=== PATIENT | female | born 1960 | race Caucasian/White ===

== ENCOUNTER → 2018-05-30 01:02 | Outpatient (CLI) | payer MEDICARE, SELFPAY ==
--- NOTE | 2018-05-30 10:00 | DI.REPORT_ITS ---
SYMPTOM/DIAGNOSIS: PERSONAL H/O BREAST CA Z85.3 MAMMOGRAMS: Mammograms were interpreted according to the usual protocol including computer analysis with CAD system, tomosynthesis and C view imaging. The breast tissue is moderately radiodense which somewhat limits the sensitivity of the study. The patient is status post bilateral breast surgery and biopsy clips are in the upper outer right breast. There is no dominant mass. SUMMARY: No significant interval change when compared with the previous examination. Breast density Category C. There is no evidence of malignancy. Category 2. Follow up surveillance with routine screening mammography is recommended. SA ASSESSMENT OF FINDINGS: Negative with benign findings. Category 2. Patient will receive a letter notifying them of these results. Bi-RADS category C. The breasts are heterogeneously dense, which may obscure small masses.
== END ==
PROVIDERS: PCP Nurse Practitioner Family; Visit Provider Nurse Practitioner Family
DX: Z85.3 Personal history of malignant neoplasm of breast (principal); Z98.890 Other specified postprocedural states
CPT/HCPCS: 77063; 77067

== ENCOUNTER 2018-07-04 13:58 | Emergency (ER) | payer MEDICARE, SELFPAY ==
[2018-07-04] VITALS (16 sets, daily range): BP systolic 121–147; BP diastolic 63–88; PULSE 56–79; RESP 11–16; TEMP 36.6; O2SAT 96–100
--- NOTE | 2018-07-04 14:21 | W.ED.GENAD ---
Discharge Plan Disposition Patient Disposition: AGAINST MEDICAL ADVICE Discharge Details Chief Complaint: Dizzy/Sync Clinical Impression: Vertigo Primary Care Provider: Toyin Mcnair ED Provider: Melody Stone Home Meds and New Rx's Prescriptions: No Action vit A and D3 in cod liver oil [cod liver oil] 1 EACH capsule 1 ea PO DAILY RF: 0 magnesium 200 MG tablet 200 mg PO DAILY RF: 0 Black Current Oil 1 cap PO BID RF: 0 iodine (bulk) 1 GM granules 1 tab PO DAILY RF: 0 amoxicillin-pot clavulanate 1 TAB tablet 1 ea PO TID Qty: 22 RF: 0 ibuprofen [Advil Liqui-Gel] 200 MG capsule 4 tab PO PRN PRNRF: 0 Discharge Instructions Instructions: Vertigo (ED) Additional Instructions: You have elected to leave the emergency department AGAINST MEDICAL ADVICE. There is a risk of or permanent disability of leaving AGAINST MEDICAL ADVICE. He may return to the emergency department anytime if you choose to do so, or if you experience new or worsening symptoms or become otherwise concerned. It is extremely important that you see your primary care doctor as scheduled tomorrow. Referrals: Toyin Mcnair [Primary Care Provider] - Discharge Data Discharge Date/Time-TO BE ENTERED AT DEPARTURE: 07/04/18 16:00 Medical Decision Making MDM Narrative Medical decision making narrative: Patt Mark is a 58 y/o woman with h/o breast cancer in the past presenting to the emergency department with episode of sudden onset feeling off-balance, sweating and elevated BP. No lightheadedness or presyncope. On exam Pt is very well-appearing and non-toxic. Non-focal neuro exam. Concern for BPV vs central vertigo/TIA vs other. Doubt ACS, arrhythmia. Exam/hx not c/w PE, acute aortic pathology, sepsis, meningitis. Plan for EKG, screening labs, MRI/MRA for posterior circulation evaluation. Labs non-diagnostic. Pt reporting that she now feels better and at baseline. Pt reports that she has severe claustrophobia and does want to have an MRI. She reports that she is currently in remssion from b/l breast cancer and is supposed to have breast MRIs annually, which she has not had in the past 3 years 2/2 claustrophobia. Pt offered anxiety medication for MRI and she continues to refuse. 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 Discussed the risks of leaving AMA, including and permanent disability with Pt, who verbalizes understanding of these risks and continues to refuse further testing and requests to leave now. She reports that she called her PCP and made an appointment for tomorrow. Lengthy discussion with Pt re: RTED precautions, that she may RTED at any time if she changes her mind, and importance of outpt f/u. ECG Data Attestation: I personally reviewed and interpreted this ECG (s) as follows: Interpretation: EKG shows NSR at 81, nl axis, no acute ischemic changes, no WPW, no brugada, nl intervals, non-diagnostic EKG HPI - General Adult General Mode of arrival: ambulatory. Date/Time Provider Initiated Documentation: 07/04/18 14:10. Limitations to Documentation: no limitations. Information obtained by: patient. HPI Narrative: Patt Mark is a 58-year-old woman with h/o breast cancer in the past presenting to the emergency department complaining of vertigo. Patient reports that earlier today she was making herself lunch when she had a sudden sensation of motion and felt as if she was going to fall over. She began sweating and feeling not like myself. She sat down and took her BP several times during this episode, with max SBP in 150s and max DBP in 90s, which is unusually high for her. She had no pain, no SOB, no fever, no weakness, no n/t. Pt reports that feeling of motion gradually began to resolve, and lasted approx one hour. Pt called her PCP, and was told to come to the ED. Pt reports that she still feels not like myself, but is unable to describe this sensation further. No further feeling of being off balance or sense of motion. She denies having similar symptoms in the past. She has previously been in her usual state of health, no recent illness. No recent travel. No h/o vertigo in the past. Related Data Home Medications Medication Instructions Recorded Confirmed vit A and D3 in cod liver oil [cod 1 ea PO DAILY 09/26/13 08/18/17 liver oil] Black Current Oil 1 cap PO BID 07/01/14 02/14/18 magnesium 200 mg PO DAILY 07/01/14 02/14/18 ibuprofen [Advil Liqui-Gel] 4 tab PO PRN PRN 04/02/17 02/14/18 iodine (bulk) 1 tab PO DAILY 02/14/18 02/14/18 Previous Rx's Medication Instructions Recorded amoxicillin-pot clavulanate 1 ea PO TID #22 tab 02/14/18 Allergies Allergy/AdvReac Type Severity Reaction Status Date / Time avocado [Avocado] Allergy Severe Anaphylaxsi Verified 02/14/18 21:06 s oxaprozin [Oxaprozin] Allergy Intermediate SOB Verified 02/14/18 21:06 adhesive Allergy Unknown SKIN RASH Verified 02/14/18 21:06 Sulfa (Sulfonamide AdvReac Severe Anaphylaxsi Verified 02/14/18 21:06 Antibiotics) s latex AdvReac Intermediate Swelling/Ed Verified 02/14/18 21:06 keren metronidazole AdvReac HEADACHE Verified 02/14/18 21:06 sertraline AdvReac DIZZINESS Verified 02/14/18 21:06 multiple food allergies Allergy Intermediate Uncoded 02/14/18 20:50 General Stated Complaint: Dizzy/Sync SEBASTIAN: 2 Review of Systems Review of Systems Constitutional: denies fevers Eyes: denies eye pain ENT: denies facial pain, dental pain, sore throat, congestion, change in hearing, ear pain Cardiovascular: denies chest pain, edema Respiratory: denies SOB, cough GI: denies abdominal pain, vomiting, diarrhea : denies flank pain MSK: denies back pain, neck pain, arhtralgias, myalgias Skin: denies rash Neuro: denies headaches, lightheadedness, weakness, numbness/tingling; reports loss of balance [facility] Medical History Breast cancer (Chronic) Social History Smoking/Tobacco Use Status: Former Tobacco Use Surgical History Appendectomy Colonoscopy - MAC Hysterectomy, Laproscopic Skin Cancer Removal Tonsillectomy Exam Narrative Exam Narrative: Constitutional: well and [id number], pleasant, conversing normally HENT: head atraumatic, normocephalic normal inspection, mucous membranes moist, TMs and canals nl b/l Eyes: conjunctiva normal, sclera normal, pupils 3mm b/l, EOMI, no nystagmus Neck: no stridor, normal ROM, trachea midline Chest: normal inspection Resp: normal work of breathing, LCTAB Cardio: normal rate, normal rhythm, no murmur appreciated GI: abdomen soft, non-tender, non-distended Back: normal inspection, no rash Skin: warm, dry, normal color, no rash Neuro: alert, not altered, 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
[2018-07-04 15:35] LABS: Abs Immature Grans 0.01 k/cumm (0.0-0.09); Absolute Basophil Count 0.01 k/cumm (0.0-0.2); Absolute Eosinophil Count 0.17 k/cumm (0.0-0.7); Absolute Lymphocyte Count 2.19 k/cumm (1.2-3.4); Absolute Monocyte Count 0.32 k/cumm (0.11-0.7); Absolute Neutrophil Count 2.62 k/cumm (1.2-6.7); Basophils % 0.2; Eosinophils % 3.2; HCT 39.4 % (36.0-46.0); HGB 13.7 g/dL (12.0-15.5); Immature Grans % 0.2; Lymphocytes % 41.2; Mean Corp. HGB Concentration 34.8 g/dL (32.0-36.0); Mean Corpuscular Hemoglobin 31.5 pg (27.0-33.0); Mean Corpuscular Volume 90.6 fL (80-95); Mean Platelet Volume 9.3 fL (8.0-11.0); Neutrophils % 49.2; Platelet Count 235 x1000/uL (130-400); RBC 4.35 m/cumm (4.00-5.20); RBC Distribution Width 12.8 % (11.7-14.6); White Blood Cell Count 5.32 k/cumm (4.4-10.8)
[2018-07-04 15:51] LABS: ALT 44 U/L (12-78); AST 23 U/L (15-37); Albumin 3.8 g/dL (3.4-5.0); Alkaline Phosphatase 109 U/L (46-116); Anion Gap 7.7 mmol/L (3-11); BUN 18 mg/dL (7-18); Bilirubin, Total 0.3 mg/dL (0.2-1.0); CO2 28.3 mmol/L (21.0-32.0); CREATININE 0.76 mg/dL (0.55-1.02); Chloride 105 mmol/L (98-107); Glucose 96 mg/dL (70-100); Sodium 141 mmol/L (136-145); Total Protein 7.7 g/dL (6.4-8.2)
[2018-07-04 15:54] LABS: Troponin I < 0.02 ng/mL (0.00-0.06)
--- NOTE | 2018-07-04 16:02 | ED.GENADUL_ITS ---
Discharge Plan Disposition Patient Disposition: AGAINST MEDICAL ADVICE Discharge Details Chief Complaint: Dizzy/Sync Clinical Impression: Vertigo Primary Care Provider: Toyin Mcnair ED Provider: Melody Stone Home Meds and New Rx's Prescriptions: No Action vit A and D3 in cod liver oil [cod liver oil] 1 EACH capsule 1 ea PO DAILY RF: 0 magnesium 200 MG tablet 200 mg PO DAILY RF: 0 Black Current Oil 1 cap PO BID RF: 0 iodine (bulk) 1 GM granules 1 tab PO DAILY RF: 0 amoxicillin-pot clavulanate 1 TAB tablet 1 ea PO TID Qty: 22 RF: 0 ibuprofen [Advil Liqui-Gel] 200 MG capsule 4 tab PO PRN PRNRF: 0 Discharge Instructions Instructions: Vertigo (ED) Additional Instructions: You have elected to leave the emergency department AGAINST MEDICAL ADVICE. There is a risk of or permanent disability of leaving AGAINST MEDICAL ADVICE. He may return to the emergency department anytime if you choose to do so, or if you experience new or worsening symptoms or become otherwise concerned. It is extremely important that you see your primary care doctor as scheduled tomorrow. Referrals: Toyin Mcnair [Primary Care Provider] - Discharge Data Discharge Date/Time-TO BE ENTERED AT DEPARTURE: 07/04/18 16:00 Medical Decision Making MDM Narrative Medical decision making narrative: Patt Mark is a 58 y/o woman with h/o breast cancer in the past presenting to the emergency department with episode of sudden onset feeling off-balance, sweating and elevated BP. No lightheadedness or presyncope. On exam Pt is very well-appearing and non-toxic. Non-focal neuro exam. Concern for BPV vs central vertigo/TIA vs other. Doubt ACS , arrhythmia. Exam/hx not c/w PE, acute aortic pathology, sepsis, meningitis. Plan for EKG, screening labs, MRI/MRA for posterior circulation evaluation. Labs non-diagnostic. Pt reporting that she now feels better and at baseline. Pt reports that she has severe claustrophobia and does want to have an MRI. She reports that she is currently in remssion from b/l breast cancer and is supposed to have breast MRIs annually, which she has not had in the past 3 years 2/2 claustrophobia. Pt offered anxiety medication for MRI and she continues to refuse. 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 Discussed the risks of leaving AMA, including and permanent disability with Pt, who verbalizes understanding of these risks and continues to refuse further testing and requests to leave now. She reports that she called her PCP and made an appointment for tomorrow. Lengthy discussion with Pt re: RTED precautions, that she may RTED at any time if she changes her mind, and importance of outpt f/u. ECG Data Attestation: I personally reviewed and interpreted this ECG (s) as follows: Interpretation: EKG shows NSR at 81, nl axis, no acute ischemic changes, no WPW , no brugada, nl intervals, non-diagnostic EKG HPI - General Adult General Mode of arrival: ambulatory . Date/Time Provider Initiated Documentation: 07/04/18 14:10 . Limitations to Documentation: no limitations . Information obtained by: patient . HPI Narrative: Patt Mark is a 58-year-old woman with h/o breast cancer in the past presenting to the emergency department complaining of vertigo. Patient reports that earlier today she was making herself lunch when she had a sudden sensation of motion and felt as if she was going to fall over. She began sweating and feeling not like myself. She sat down and took her BP several times during this episode, with max SBP in 150s and max DBP in 90s, which is unusually high for her. She had no pain, no SOB, no fever, no weakness, no n/t. Pt reports that feeling of motion gradually began to resolve, and lasted approx one hour. Pt called her PCP, and was told to come to the ED. Pt reports that she still feels not like myself, but is unable to describe this sensation further. No further feeling of being off balance or sense of motion. She denies having similar symptoms in the past. She has previously been in her usual state of health, no recent illness. No recent travel. No h/o vertigo in the past. Related Data Home Medications Medication Instructions Recorded Confirmed vit A and D3 in cod liver oil [cod 1 ea PO DAILY 09/26/13 08/18/17 liver oil] Black Current Oil 1 cap PO BID 07/01/14 02/14/18 magnesium 200 mg PO DAILY 07/01/14 02/14/18 ibuprofen [Advil Liqui-Gel] 4 tab PO PRN PRN 04/02/17 02/14/18 iodine (bulk) 1 tab PO DAILY 02/14/18 02/14/18 Previous Rx's Medication Instructions Recorded amoxicillin-pot clavulanate 1 ea PO TID #22 tab 02/14/18 Allergies Allergy/AdvReac Type Severity Reaction Status Date / Time avocado [Avocado] Allergy Severe Anaphylaxsi Verified 02/14/18 21:06 s oxaprozin [Oxaprozin] Allergy Intermediate SOB Verified 02/14/18 21:06 adhesive Allergy Unknown SKIN RASH Verified 02/14/18 21:06 Sulfa (Sulfonamide AdvReac Severe Anaphylaxsi Verified 02/14/18 21:06 Antibiotics) s latex AdvReac Intermediate Swelling/Ed Verified 02/14/18 21:06 keren metronidazole AdvReac HEADACHE Verified 02/14/18 21:06 sertraline AdvReac DIZZINESS Verified 02/14/18 21:06 multiple food allergies Allergy Intermediate Uncoded 02/14/18 20:50 General Stated Complaint: Dizzy/Sync SEBASTIAN: 2 Review of Systems Review of Systems Constitutional: denies fevers Eyes: denies eye pain ENT: denies facial pain, dental pain, sore throat, congestion, change in hearing , ear pain Cardiovascular: denies chest pain, edema Respiratory: denies SOB, cough GI: denies abdominal pain, vomiting, diarrhea : denies flank pain MSK: denies back pain, neck pain, arhtralgias, myalgias Skin: denies rash Neuro: denies headaches, lightheadedness, weakness, numbness/tingling; reports loss of balance [facility] Medical History Breast cancer (Chronic) Social History Smoking/Tobacco Use Status: Former Tobacco Use Surgical History Appendectomy Colonoscopy - MAC Hysterectomy, Laproscopic Skin Cancer Removal Tonsillectomy Exam Narrative Exam Narrative: Constitutional: well and [id number], pleasant, conversing normally HENT: head atraumatic, normocephalic normal inspection, mucous membranes moist, TMs and canals nl b/l Eyes: conjunctiva normal, sclera normal, pupils 3mm b/l, EOMI, no nystagmus Neck: no stridor, normal ROM, trachea midline Chest: normal inspection Resp: normal work of breathing, LCTAB Cardio: normal rate, normal rhythm, no murmur appreciated GI: abdomen soft, non-tender, non-distended Back: normal inspection, no rash Skin: warm, dry, normal color, no rash Neuro: alert, not altered, induction heating equipment 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
--- NOTE | 2018-07-05 11:54 | PDOC.ERCMPRO ---
Care Management Progress Note 07/05/18-Pt seen on 07/04/[address] Deshaun Stone. Pt left AMA. CM conatcted Pt who stated all the staff was very nice to her it was just a time constrainnt on her end as she had to pick her boyfriend up from work. Pt had a scheduled appt with her PCP for today and decided to cancel it and made an appt with her chiropractor, instead. Pt declined wanting a f/u appt with PCP at this time.
== END 2018-07-04 16:00 | disposition left against medical advice (07) ==
LOC: ER 18:35
PROVIDERS: Emergency Provider Student in an Organized Health Care Education/Training Program; PCP Nurse Practitioner Family
DX: R42 Dizziness and giddiness (principal); Z53.29 Procedure and treatment not carried out because of patient's decision for other reasons
CPT/HCPCS: 36415; 80053; 93005; 99284; 84484; 85025; 93010

== ENCOUNTER 2019-01-04 10:21 | Outpatient (CLI) | payer MEDICARE, SELFPAY ==
[2019-01-04 11:19] LABS: Absolute Basophil Count 0.02 k/cumm (0.0-0.2); Absolute Eosinophil Count 0.13 k/cumm (0.0-0.7); Absolute Lymphocyte Count 1.88 k/cumm (1.2-3.4); Absolute Monocyte Count 0.23 k/cumm (0.11-0.7); Absolute Neutrophil Count 2.22 k/cumm (1.2-6.7); Basophils % 0.4; Eosinophils % 2.9; HCT 39.5 % (36.0-46.0); HGB 13.6 g/dL (12.0-15.5); Mean Corp. HGB Concentration 34.4 g/dL (32.0-36.0); Mean Corpuscular Hemoglobin 30.8 pg (27.0-33.0); Mean Corpuscular Volume 89.6 fL (80-95); Mean Platelet Volume 9.6 fL (8.0-11.0); Monocytes % 5.1; Neutrophils % 49.6; Platelet Count 246 x1000/uL (130-400); RBC 4.41 m/cumm (4.00-5.20); RBC Distribution Width 12.5 % (11.7-14.6); White Blood Cell Count 4.48 k/cumm (4.4-10.8)
[2019-01-04 14:23] LABS: Iron 96 ug/dL (50-175); Total Iron Binding Capacity 345 ug/dL (250-450); Transferrin Sat 28 % (15-50)
[2019-01-04 15:25] LABS: Anion Gap 12.7 mmol/L (3-11); BUN 18 mg/dL (7-18); CO2 24.3 mmol/L (21.0-32.0); CREATININE 0.79 mg/dL (0.55-1.02); Calcium 9.5 mg/dL (8.5-10.1); Chloride 103 mmol/L (98-107); Cholesterol 247 mg/dL (50-200); Ferritin 105 ng/mL (8-388); Glucose 88 mg/dL (70-100); HDL Cholesterol 103 mg/dL (40-60); LDL CHOLESTEROL 124 mg/dL (<100); Magnesium 2.1 mg/dL (1.8-2.4); Potassium 4.1 mmol/L (3.5-5.1); Sodium 140 mmol/L (136-145); TSH (W/Ref FT4) 1.34 uIU/mL (0.358-3.74); Triglyceride 61 mg/dL (30-150)
== END 2019-01-04 10:41 ==
PROVIDERS: PCP Nurse Practitioner Family; Visit Provider Nurse Practitioner Family
DX: R42 Dizziness and giddiness (principal); E03.9 Hypothyroidism, unspecified; I70.0 Atherosclerosis of aorta; R73.9 Hyperglycemia, unspecified; M25.50 Pain in unspecified joint
CPT/HCPCS: 36415; 80048; 80061; 83721; 82728; 83540; 83550; 83735; 84443; 85025

== ENCOUNTER 2019-01-25 02:28 | Outpatient (CLI) | payer MEDICARE, SELFPAY ==
--- NOTE | 2019-01-25 10:38 | DI.US_ITS ---
SYMPTOM/DIAGNOSIS: LIGHTHEADEDNESS, R42, ATHEROSCLEROTIC AORTA, I70.0, HEADACHES, DIZZINESS, BLURRY VISION LT EYE BILATERAL DUPLEX CAROTID ULTRASOUND: Duplex evaluation of the carotid circulation was performed according to the usual protocol. There is little or no visible atheromatous plaque in the carotid circulation. Flow velocities in common, internal and external carotid arteries are within normal limits bilaterally. There is bilateral antegrade vertebral flow. CONCLUSION: No evidence of a hemodynamically significant carotid stenosis.
== END 2019-01-25 02:48 ==
PROVIDERS: PCP Nurse Practitioner Family; Visit Provider Nurse Practitioner Family
DX: R42 Dizziness and giddiness (principal); I70.0 Atherosclerosis of aorta; R51 Headache; H53.8 Other visual disturbances
CPT/HCPCS: 93880

== ENCOUNTER → 2019-03-25 13:52 | Outpatient (BNVA) | payer MEDICARE, SELFPAY | PROVIDERS: PCP Nurse Practitioner Family; Referring Provider Nurse Practitioner Family; Visit Provider Psychiatry & Neurology Neurology | DX: G44.209 Tension-type headache, unspecified, not intractable (principal); G43.009 Migraine without aura, not intractable, without status migrainosus; G47.00 Insomnia, unspecified; J44.9 Chronic obstructive pulmonary disease, unspecified; Z87.891 Personal history of nicotine dependence | CPT/HCPCS: 99205; 99215 ==

== ENCOUNTER 2019-09-27 15:55 | Outpatient (CLI) | payer MEDICARE, SELFPAY ==
[2019-09-27 16:46] LABS: Absolute Basophil Count 0.02 k/cumm (0.0-0.2); Absolute Eosinophil Count 0.17 k/cumm (0.0-0.7); Absolute Lymphocyte Count 2.82 k/cumm (1.2-3.4); Absolute Monocyte Count 0.39 k/cumm (0.11-0.7); Absolute Neutrophil Count 2.33 k/cumm (1.2-6.7); Basophils % 0.3; HCT 39.9 % (36.0-46.0); HGB 13.9 g/dL (12.0-15.5); Lymphocytes % 49.2; Mean Corp. HGB Concentration 34.8 g/dL (32.0-36.0); Mean Corpuscular Hemoglobin 31.4 pg (27.0-33.0); Mean Corpuscular Volume 90.1 fL (80-95); Mean Platelet Volume 9.4 fL (8.0-11.0); Monocytes % 6.8; Neutrophils % 40.7; Platelet Count 274 x1000/uL (130-400); RBC 4.43 m/cumm (4.00-5.20); RBC Distribution Width 12.5 % (11.7-14.6); White Blood Cell Count 5.73 k/cumm (4.4-10.8)
== END 2019-09-27 16:15 ==
PROVIDERS: PCP Nurse Practitioner Family; Visit Provider Nurse Practitioner Family
DX: D84.1 Defects in the complement system (principal)
CPT/HCPCS: 36415; 85025

== ENCOUNTER 2019-10-08 02:32 | Outpatient (CLI) | payer MEDICARE, SELFPAY ==
--- NOTE | 2019-10-08 09:07 | DI.MAMMO_ITS ---
EXAM: MG MAMMO SCREENING 60 MIN DUR CLINICAL HISTORY: PERSONAL H/O BREAST CA, Z85.3 TECHNIQUE: Mammograms were interpreted according to the usual protocol including computer analysis w [employer] CAD system, tomosynthesis and C-view imaging. COMPARISON: 2009 through 2017. FINDINGS: The breasts are composed of heterogeneously dense fibroglandular densities, Breast Density category C . There is mild bilateral scarring related to remote lumpectomies. Biopsy marker clips are again noted in the upper outer quadrant of the right breast. No suspicious masses or suspicious microcalcifications are seen. There are scattered benign calcifi cations in the superior portions of both breasts, stable. No skin thickening or abnormal axillary lymph nodes are seen. There has been no significant change from prior exams. IMPRESSION: BIRADS Category 2, negative mammogram with benign findings. Yearly screening mammography is recommen ded. BREAST DENSITY: The mammogram demonstrates the patient's breast tissue is dense. Dense breast tissue is very common and is not abnormal but dense breast tissue can make it harder to find cancer on a ma mmogram. Also, dense breast tissue may increase their breast cancer risk. This information about the result of the mammogram report was provided to the patient to raise their awareness. Use this report when you speak with the patient about their risks for breast cancer, which includes their family hist ory. At that time, you may recommend for more screening tests (Ultrasound or MRI) as they might be us eful based on their risk. A negative radiographic report should not delay biopsy if a dominant or clinically suspicious mass is present. Up to ten percent of cancers are not identified on mammography. A negative report may reinforce clinical impression. Adenosis and dense breasts may obscure an underlying neoplasm. False positive reports average 6 to 10%.
== END 2019-10-08 02:52 ==
PROVIDERS: PCP Nurse Practitioner Family; Visit Provider Nurse Practitioner Family
DX: Z12.31 Encounter for screening mammogram for malignant neoplasm of breast (principal); Z85.3 Personal history of malignant neoplasm of breast; Z98.890 Other specified postprocedural states; R92.1 Mammographic calcification found on diagnostic imaging of breast
CPT/HCPCS: 77063; 77067

== ENCOUNTER 2019-10-18 06:00 | Emergency (ER) | payer MEDICARE, SELFPAY ==
[2019-10-18 06:08] VITALS: BP 139/65; PULSE 93; RESP 18; TEMP 36.3; O2SAT 98
--- NOTE | 2019-10-18 06:18 | W.ED.GENAD ---
Discharge Plan Disposition Patient Disposition: HOME Condition: Stable Discharge Details Chief Complaint: Abd Prob Clinical Impression: Diverticulitis Primary Care Provider: Toyin Mcnair ED Provider: Leonel Mitchell Home Meds and New Rx's Prescriptions: New amoxicillin-pot clavulanate [Augmentin] 875-125 mg tablet 1 tab PO BID Qty: 14 RF: 0 Continued potassium chloride 40 mEq/15 mL liquid 40 meq PO DAILY RF: 0 vitamin B complex [Vitamins B Complex] tablet 1 tab PO DAILY RF: 0 cod liver oil oil 5 ml PO DAILY RF: 0 cholecalciferol (vitamin D3) 2,000 unit/drop drops 4,000 unit PO DAILY RF: 0 iodine liquid MC RF: 0 vit A and D3 in cod liver oil [cod liver oil] 1 EACH capsule 1 ea PO DAILY RF: 0 magnesium 200 MG tablet 200 mg PO DAILY RF: 0 Black Current Oil 1 cap PO BID RF: 0 ibuprofen [Advil Liqui-Gel] 200 MG capsule 4 tab PO PRN PRNRF: 0 Discharge Instructions Instructions: Diverticulitis (ED) Additional Instructions: if your pain is not improving in 3 days or significant worsening of pain return to the emergency department follow up with your primary care provider within 1-2 weeks Medical Decision Making 59 yo female with prior total hysterectomy and prior diverticulitis comes in with llq pain similar to prior diverticulitis she has had. Denies fevers, chills, vomit. She is leaving for [place] tomorrow and came in today for an eval. She has tenderness without guarding and rebound tenderness in llq no other pain elsewhere on exam. Suspect diverticulitis but had discussion about CT to confirm but she declined and would like to start PO abx. She has capacity to make her own decisions and understands she needs to return if she is not improving in a few days with abx or if pain significantly worsens. She has multiple drug allergies and she does confirm with me she has tolerated augmentin in the past without significant reactions so will start this Differential Diagnosis Differential Diagnosis: diverticulitis, colitis HPI General Mode of arrival: ambulatory. Date/Time Provider Initiated Documentation: 10/18/19 06:01. Limitations to Documentation: no limitations. Information obtained by: patient. History of Present Illness 59 year old F presents to the emergency department with the chief complaint of abdominal pain, described as moderate, Quality is described as aching, No relieving factors improve symptom(s), No exacerbating factors reported . Patient did receive the following treatments prior to arrival, none Related Data Home Medications Medication Instructions Recorded Confirmed vit A and D3 in cod liver oil [cod 1 ea PO DAILY 09/26/13 10/18/19 liver oil] Black Current Oil 1 cap PO BID 07/01/14 10/18/19 magnesium 200 mg PO DAILY 07/01/14 10/18/19 ibuprofen [Advil Liqui-Gel] 4 tab PO PRN PRN 04/02/17 10/18/19 cholecalciferol (vitamin D3) 2,000 4,000 unit PO DAILY ml 01/29/19 10/18/19 unit/drop oral drops cod liver oil 5 ml PO DAILY 01/29/19 10/18/19 iodine ml MC 01/29/19 03/25/19 potassium chloride 40 mEq/15 mL 40 meq PO DAILY 01/29/19 10/18/19 oral liquid vitamin B complex 1 tab PO DAILY 01/29/19 10/18/19 amoxicillin-pot clavulanate 1 tab PO BID #14 tab 10/18/19 [Augmentin] Previous Rx's Medication Instructions Recorded amoxicillin-pot clavulanate 1 tab PO BID #14 tab 10/18/19 [Augmentin] Allergies Allergy/AdvReac Type Severity Reaction Status Date / Time avocado [Avocado] Allergy Severe Anaphylaxsi Verified 10/18/19 06:11 s oxaprozin [Oxaprozin] Allergy Intermediate SOB Verified 10/18/19 06:11 amoxicillin [From Augmentin] Allergy Mild Verified 10/18/19 06:11 clavulanic acid Allergy Mild Verified 10/18/19 06:11 [From Augmentin] fentanyl Allergy Mild Verified 10/18/19 06:11 morphine Allergy Mild Verified 10/18/19 06:11 adhesive Allergy Unknown SKIN RASH Verified 10/18/19 06:11 Sulfa (Sulfonamide AdvReac Severe Anaphylaxsi Verified 10/18/19 06:11 Antibiotics) s latex AdvReac Intermediate Swelling/Ed Verified 10/18/19 06:11 keren metronidazole AdvReac HEADACHE Verified 10/18/19 06:11 sertraline AdvReac DIZZINESS Verified 10/18/19 06:11 multiple food allergies Allergy Intermediate Uncoded 10/18/19 06:11 General Stated Complaint: Abd Prob SEBASTIAN: 3 Review of Systems All systems reviewed & are unremarkable except as noted in HPI and below Constitutional Constitutional: Denies chills, Denies fever(s) and Denies weakness ENT Ears, Nose, Mouth, and Throat: Denies change in voice Cardiovascular Cardiovascular: Denies chest pain and Denies dyspnea Respiratory Respiratory: Denies cough and Denies dyspnea Gastrointestinal Gastrointestinal: Denies nausea and Denies vomiting Genitourinary Genitourinary: Denies dysuria Musculoskeletal Musculoskeletal: Denies joint swelling Integumentary/Breasts Skin/Breast: Denies rash Neurologic Neurologic: Denies weakness Psychiatric Psychiatric: Denies depression Endocrine Endocrine: Denies cold intolerance and Denies heat intolerance Allergic/Immunologic Allergic/Immunologic: Denies urticaria PFSH Social History Smoking/Tobacco Use Status: Former Tobacco Use Alcohol Intake: current Alcohol Intake frequency: a few times a month Drug use: Never 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 Do you feel safe in your relationship?: Yes Exam Const General: no acute distress Orientation: alert HENMT Head: normal to inspection Ears: external ears normal General nose exam: external nose normal Mouth: moist mucous membranes Eyes General: appearance normal, both eyes and all related structures Neck Neck: normal visual inspection Resp Effort & Inspection: normal respiratory effort and able to speak in complete sentences Cardio Rate: regular rate GI Palpation: soft Skin General skin exam: no rashes or lesions noted Neuro General: alert and oriented x3 Extrem General: normal to inspection Psych Mental Status: mental status grossly normal Course Vital Signs Vital signs: Vital Signs Temperature 36.3 C L 10/18/19 06:08 Pulse 93 H 10/18/19 06:08 Respiratory Rate 18 10/18/19 06:08 Blood Pressure 139/65 10/18/19 06:08 Pulse Oximetry 98 10/18/19 06:08 Temperature 36.3 C L 10/18/19 06:08 Temperature Source Skin 10/18/19 06:08 Pulse 93 H 10/18/19 06:08 Respiratory Rate 18 10/18/19 06:08 Blood Pressure 139/65 10/18/19 06:08 Pulse Oximetry 98 10/18/19 06:08 Pain Level 8 10/18/19 06:08
[2019-10-18] MEDS: Ciprofloxacin 500 MG TAB PO (06:40)
[2019-10-18] MEDS: metroNIDAZOLE 500 MG TAB PO (06:41)
== END 2019-10-18 06:45 | disposition home or self-care (01) ==
PROVIDERS: Emergency Provider Emergency Medicine; PCP Nurse Practitioner Family
DX: R10.824 Left lower quadrant rebound abdominal tenderness (principal); K57.32 Diverticulitis of large intestine without perforation or abscess without bleeding
CPT/HCPCS: 99283

== ENCOUNTER 2020-06-17 03:27 | Outpatient (CLI) | payer MEDICARE, SELFPAY ==
[2020-06-17 17:44] LABS: FREE T4 1.02 ng/dL (0.76-1.46); TSH 0.84 uIU/mL (0.36-3.74)
[2020-06-18 17:04] LABS: T3,Free 3.7 pg/mL (2.8-5.3)
== END 2020-06-17 03:47 ==
PROVIDERS: PCP Nurse Practitioner Family; Visit Provider Nurse Practitioner Family
DX: E03.9 Hypothyroidism, unspecified (principal)
CPT/HCPCS: 36415; 84439; 84443; 84481

== ENCOUNTER 2020-07-09 01:28 | Outpatient (CLI) | payer MEDICARE, SELFPAY ==
--- NOTE | 2020-07-09 | DI.CT_ITS ---
EXAM: CT HEAD WO CLINICAL HISTORY: MEMORY DEFICIT, R41.3,H/O FALL, Z91.81. TECHNIQUE: Imaging Protocol: Axial computed tomography images with coronal and sagittal reformatted images were created and reviewed COMPARISON: CT HEAD AND CSPINE W/O CONTRAST from 03/27/2015 FINDINGS: The ventricular system is normal in appearance. Note is made of mild bifrontal atrophy. No evidence of acute intracranial hemorrhage, mass effect, or midline shift. The orbital structures are unremarkable. The temporal bone structures appear intact. Calvarium: Normal. Visualized Paranasal sinuses/Mastoids: Clear. IMPRESSION: Mild bifrontal atrophy. Otherwise normal cranial CT. RADIATION DOSE DELIVERED: 616.62mGy.cm Total DLP 616.62mGy.cm Total DLP DATA REPOSITORY: All CT scans at this facility are submitted to the National Radiology Data Registry (NRDR) Dose Index Registry (DIR) with the [employer] (ACR). RADIATION OPTIMIZATION: All CT scans at this facility use at least one of these dose optimization te chniques: automated exposure control; mA and/or kV adjustment per patient size (includes targeted exa ms where dose is matched to clinical indication); or iterative reconstruction.
== END 2020-07-09 01:48 ==
PROVIDERS: PCP Nurse Practitioner Family; Visit Provider Nurse Practitioner Family
DX: R41.3 Other amnesia (principal); G31.89 Other specified degenerative diseases of nervous system
CPT/HCPCS: 70450

== ENCOUNTER 2020-10-12 00:11 | Outpatient (CLI) | payer MEDICARE, SELFPAY ==
--- NOTE | 2020-10-12 | DI.MAMMO_ITS ---
EXAM: MG MAMMO SCREENING 60 MIN DUR CLINICAL HISTORY: SCREENING, PERSONAL H/O BREAST CA,Z85.3 TECHNIQUE: Bilateral full field digital CC and MLO mammographic images were obtained with 3D tomosyn thesis and utilizing computer aided detection (CAD). COMPARISON: Available for comparison. FINDINGS: Microcalcifications: No suspicious pleomorphic-type are seen. Skin Thickening/Nipple Retraction: None. Masses/Architectural Distortion: None seen. The patient is status post bilateral lumpectomies. Biops y clips are again seen in the upper outer quadrant of the right breast. IMPRESSION: 1. No significant interval change with no specific features of malignancy noted. 2. Unless there is more urgent need, screening mammography is recommended, as per [employer] guidelines. 3. Findings were discussed with the patient on the date of the examination. BI-RADS Category 2 - Benign Findings Breast Density - Category C - Heterogeneously dense Breast density category C or D implies that the patient has dense breast tissue. Dense breast tissue is very common and is not abnormal but dense breast tissue can make it harder to find cancer on a ma mmogram. Also, dense breast tissue may increase their breast cancer risk. This information about the result of the mammogram report was provided to the patient to raise their awareness. Use this report when you speak with the patient about their risks for breast cancer, which includes their family hist ory. At that time, you may recommend for more screening tests (Ultrasound or MRI) as they might be us eful based on their risk. A negative radiographic report should not delay biopsy if a dominant or clinically suspicious mass is present. Up to ten percent of cancers are not identified on mammography. A negative report may reinforce clinical impression. Adenosis and dense breasts may obscure an underlying neoplasm. False positive reports average 6 to 10%. Patient will receive a letter notifying them of these results.
== END 2020-10-12 00:31 ==
PROVIDERS: PCP Nurse Practitioner Family; Visit Provider Nurse Practitioner Family
DX: Z12.31 Encounter for screening mammogram for malignant neoplasm of breast (principal); Z85.3 Personal history of malignant neoplasm of breast
CPT/HCPCS: 77063; 77067

== ENCOUNTER 2020-10-15 00:25 | Outpatient (CLI) | payer MEDICARE, SELFPAY ==
--- NOTE | 2020-10-15 09:40 | DI.CT_ITS ---
EXAM: CT CHEST W CLINICAL HISTORY: PULMONARY NODULE, TECHNIQUE: Imaging Protocol: Axial computed tomography images with coronal and sagittal reformatted images were created and reviewed CONTRAST MATERIAL: Intravenous: Omnipaque 350 Contrast volume:structured data in ml. COMPARISON: CT CHEST FOR PULMONARY EMBOLUS from 06/26/2013 CT CHEST FOR PULMONARY EMBOLUS from 12/27/2015 CT ABD PELVIS WITH CONTRAST from 10/04/2017 CT ABD PELVIS WITH CONTRAST from 02/14/2018 CT ABD PELVIS WO CONTRAST from 03/06/2018 FINDINGS: Tracheobronchial tree: Patent where visualized. Mediastinum and Whitney: No dominant adenopathy or fluid collection. Pulmonary parenchyma: No consolidation or dominant measurable mass. The subpleural nodules are stable . They are located in the left lower lobe. No new pulmonary nodules are seen. Pleura: No effusion or pneumothorax. Heart: The heart is not dilated. No coronary artery calcifications are seen. No pericardial effusion. Aorta: Thoracic aorta non-dilated. 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 Atheroscleros is. Upper abdomen: Small hiatal hernia. Lymph nodes: Within normal limits. Bones: Degenerative changes in the spine. No suspicious lytic or sclerotic lesions. Mild reversed S -type scoliosis of the thoracic spine. Soft tissues: Unremarkable. IMPRESSION: Stable pulmonary nodules. These have been stable dating back to the CT scan of the chest from 06/26/20. RADIATION DOSE DELIVERED: 510.93mGy.cm Total DLP DATA REPOSITORY: All CT scans at this facility are submitted to the National Radiology Data Registry (NRDR) Dose Index Registry (DIR) with the [employer] (ACR). RADIATION OPTIMIZATION: All CT scans at this facility use at least one of these dose optimization te chniques: automated exposure control; mA and/or kV adjustment per patient size (includes targeted exa ms where dose is matched to clinical indication); or iterative reconstruction.
[2020-10-15] MEDS: Omnipaque 350 MG/ML 100 ML BTL 70 ML IJ (09:51)
== END 2020-10-15 00:45 ==
PROVIDERS: PCP Nurse Practitioner Family; Visit Provider Nurse Practitioner Family
DX: R91.8 Other nonspecific abnormal finding of lung field (principal)
CPT/HCPCS: 71260; J3490

== ENCOUNTER 2020-10-21 02:41 | Outpatient (CLI) | payer MEDICARE, SELFPAY ==
[2020-10-21 08:22] LABS: Hemoglobin A1C 5.9 % (<5.7)
[2020-10-21 08:44] LABS: Calculated LDL 145 mg/dL (<100); Cholesterol 270 mg/dL (<200); HDL Cholesterol 116 mg/dL (40-60); TSH (W/Ref FT4) 1.39 uIU/mL (0.36-3.74); Triglyceride 49 mg/dL (<150)
== END 2020-10-21 03:01 ==
PROVIDERS: PCP Nurse Practitioner Family; Visit Provider Nurse Practitioner Family
DX: E03.9 Hypothyroidism, unspecified (principal); R73.03 Prediabetes; I70.0 Atherosclerosis of aorta
CPT/HCPCS: 36415; 80061; 83036; 84443

== ENCOUNTER 2022-06-04 08:18 | Emergency (ER) | payer MEDICARE, SELFPAY ==
[2022-06-04 08:22] VITALS: BP 136/73; PULSE 84; RESP 16; TEMP 36.4; O2SAT 100
--- NOTE | 2022-06-04 08:30 | DI.US_ITS ---
Exam(s) US LOWER EXTREMITY VENOUS LT EXAM: US LOWER EXTREMITY VENOUS LT CLINICAL HISTORY: r/o dvt. TECHNIQUE: Lower extremity venous ultrasound performed using grayscale, color-flow, and spectral Do ppler analysis. COMPARISON: No exams were available for comparison FINDINGS: The common femoral, femoral and popliteal veins demonstrate normal compressibility, augmentation, and color Doppler. The posterior tibial veins are patent. No saphenous vein thrombosis is seen. There is a dilated superficial vein in the posterior calf which appears distended with thrombus. It measu res approximately 14 cm in length. No hematoma or Casas's cyst is seen. IMPRESSION: Superficial thrombophlebitis of a calf vein. No evidence of DVT. DATA REPOSITORY:
--- NOTE | 2022-06-04 08:43 | W.ED.GENAD ---
Discharge Plan Disposition Patient Disposition: STILL A PATIENT Condition: Stable Discharge Details Clinical Impression: Pain of left calf Primary Care Provider: Toyin Mcnair ED Provider: Shakir Cavazos Home Meds and New Rx's Prescriptions: No Action potassium chloride 40 mEq/15 mL liquid 40 meq PO DAILY vitamin B complex [Vitamins B Complex] tablet 1 tab PO DAILY iodine liquid MC vit A and D3 in cod liver oil [cod liver oil] 1 EACH capsule 1 ea PO DAILY magnesium 200 MG tablet 200 mg PO DAILY Black Current Oil 1 cap PO BID ibuprofen [Advil Liqui-Gel] 200 MG capsule 4 tab PO PRN PRN amoxicillin-pot clavulanate [Augmentin] 875-125 mg tablet 1 tab PO BID Qty: 14 0RF calcium carbonate [Calcium 500] 500 mg calcium (1,250 mg) Tablet 500 mg PO DAILY Medical Decision Making This is a 61-year-old female with a past medical history of superficial clots in the lower extremities, as well as a single DVT that is below the knee in the past, that occurred in 2006 when she had breast cancer and was on tamoxifen. She presents today for evaluation of potential DVT in the left lower extremity. 2 days ago she arrived after driving up from [place]. Since then she has noted mild pain in her calf, and now mild pain behind her left knee. She denies any numbness or tingling. She has never been on anticoagulants to her recollection. She has been wearing her long compression stockings on the trip and since coming up here. She denies any chest pain or shortness of breath. No other complaints at this time. Exam demonstrates relatively unremarkable left lower extremity, no pitting edema whatsoever. Minimal calf tenderness, minimal amount of ropiness in the posterior calf. Minimal posterior popliteal pain. No tenderness in the thigh. Vital signs stable. Differential is highest for peripheral superficial DVT, less likely proximal DVT. Will get formal ultrasound, monitor closely and reassess. Patient will be signed out to my colleague Dr. Vazquez Medel for follow-up on ultrasound. HPI General Date/Time Provider Initiated Documentation: 06/04/22 08:34. HPI Narrative: This is a 61-year-old female with a past medical history of superficial clots in the lower extremities, as well as a single DVT that is below the knee in the past, that occurred in 2006 when she had breast cancer and was on tamoxifen. She presents today for evaluation of potential DVT in the left lower extremity. 2 days ago she arrived after driving up from [place]. Since then she has noted mild pain in her calf, and now mild pain behind her left knee. She denies any numbness or tingling. She has never been on anticoagulants to her recollection. She has been wearing her long compression stockings on the trip and since coming up here. She denies any chest pain or shortness of breath. No other complaints at this time. Related Data Home Medications Medication Instructions Recorded Confirmed vitamins A and D3 in cod liver oil 1 ea PO DAILY 09/26/13 10/18/19 1,250 unit-135 unit capsule (cod liver oil) Black Current Oil 1 cap PO BID 07/01/14 06/04/22 magnesium 200 mg tablet 200 mg PO DAILY 07/01/14 06/04/22 ibuprofen 200 mg capsule (Advil 4 tab PO PRN PRN 04/02/17 06/04/22 Liqui-Gel) iodine ml miscellaneous 01/29/19 03/25/19 potassium chloride 40 mEq/15 mL 40 meq PO DAILY 01/29/19 06/04/22 oral liquid vitamin B complex (Vitamins B 1 tab PO DAILY 01/29/19 06/04/22 Complex tablet) amoxicillin 875 mg-potassium 1 tab PO BID #14 tabs 10/18/19 clavulanate 125 mg tablet (Augmentin) calcium carbonate 500 mg calcium 500 mg PO DAILY 06/04/22 06/04/22 (1,250 mg) tablet Previous Rx's Medication Instructions Recorded amoxicillin 875 mg-potassium 1 tab PO BID #14 tabs 10/18/19 clavulanate 125 mg tablet (Augmentin) Allergies Allergy/AdvReac Type Severity Reaction Status Date / Time avocado [Avocado] Allergy Severe Anaphylaxsi Verified 10/18/19 06:11 s oxaprozin [Oxaprozin] Allergy Intermediate SOB Verified 10/18/19 06:11 amoxicillin [From Augmentin] Allergy Mild Verified 10/18/19 06:11 clavulanic acid Allergy Mild Verified 10/18/19 06:11 [From Augmentin] fentanyl Allergy Mild Verified 10/18/19 06:11 morphine Allergy Mild Verified 10/18/19 06:11 adhesive Allergy Unknown SKIN RASH Verified 12/27/19 06:11 Sulfa (Sulfonamide AdvReac Severe Anaphylaxsi Verified 10/18/19 06:11 Antibiotics) s latex AdvReac Intermediate Swelling/Ed Verified 10/18/19 06:11 keren metronidazole AdvReac HEADACHE Verified 10/18/19 06:11 sertraline AdvReac DIZZINESS Verified 10/18/19 06:11 multiple food allergies Allergy Intermediate Uncoded 10/18/19 06:11 General Stated Complaint: Vascular SEBASTIAN: 3 Review of Systems All systems reviewed & are unremarkable except as noted in HPI and below PFSH All Active Problems (Updated 06/04/22 @ 08:47 by Shakir Cavazos DO) Pain of left calf (Acute) Insomnia (Chronic) Tension headache (Chronic) Migraine headache without aura (Chronic) Osteoporosis (Chronic) Prasad's metatarsalgia (Acute) PTSD (post-traumatic stress disorder) (Acute) Varicose vein of leg (Acute) Pulmonary nodule (Acute) Irregular heart rate (Acute) Elevated blood sugar (Acute) Diverticulitis (Chronic) DVT (deep venous thrombosis) (Chronic) Hypothyroidism (Chronic) Depression (Chronic) Stage 1 mild chronic obstructive pulmonary disease by Global Initiative for Chronic Obstructive Lung Disease classification (Acute) Excessive daytime sleepiness (Acute) Neck pain (Acute) Fatigue (Acute) Atherosclerosis of aorta (Acute) Medical History (Updated 06/04/22 @ 08:47 by Shakir Cavazos DO) Bilateral hand pain Breast cancer Surgical History Appendectomy Colonoscopy - [facility] [address] Weeks negative. 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 3.ENT: Atraumatic external nose and ears. Moist MM. Neck: Symmetric, trachea midline, No thyromegaly. 4.CVS: +S1/S2, No murmurs or gallops. Peripheral pulses 2+ and equal in all extremities. Brisk capillary refill in all extremities. 5.RESP: Unlabored respiratory effort. Clear to auscultation bilaterally. No wheezes rales or rhonchi 6.GI: Soft, Nontender/Nondistended, No hepatosplenomegaly. No guarding or rebound. 7.MSK: Normocephalic/Atraumatic, Extremities w/o deformity. Left lower extremity demonstrates tenderness on palpation of the calf, but no significant edema or redness. Minimal tenderness in the posterior popliteal space. Distal pulses are intact, capillary refill is brisk. Normal strength and sensation distally on the left lower extremity. No edema on the right lower extremity. No tenderness. 8.Skin: Warm, Dry. No rashes or lesions. 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 Sensation grossly intact, no focal neurologic deficits. 10.Psych: (AAO) x3. Appropriate mood and affect Course Vital Signs Vital signs: Vital Signs Temperature 36.4 C L 06/04/22 08:22 Pulse 84 06/04/22 08:22 Respiratory Rate 16 06/04/22 08:22 Blood Pressure 136/73 06/04/22 08:22 Pulse Oximetry 100 06/04/22 08:22 Temperature 36.4 C L 06/04/22 08:22 Temperature Source Temporal Artery Scan 06/04/22 08:22 Pulse 84 06/04/22 08:22 Respiratory Rate 16 06/04/22 08:22 Blood Pressure 136/73 06/04/22 08:22 Blood Pressure Position Sitting 06/04/22 08:22 Pulse Oximetry 100 06/04/22 08:22 Oxygen Delivery Method Room Air 06/04/22 08:22 Oxygen Flow Rate 0 06/04/22 08:22 Pain Level 7 06/04/22 08:22
--- NOTE | 2022-06-04 09:27 | DI.VRAD_ITS ---
PROCEDURE INFORMATION: Exam: US Duplex Left Lower Extremity Veins, Limited Exam date and time: 06/04/2022 8:53 AM Age: 61 years old Clinical indication: Other: Leg pain TECHNIQUE: Imaging protocol: Real-time Duplex ultrasound of the Left Lower Extremity with 2-D pruitt scale, color Doppler flow and spectral waveform analysis with image documentation. Limited exam focused on the left lower extremity veins. COMPARISON: US LEFT EXTREMITY ULTRASOUND 07/03/2017 8:08 AM FINDINGS: Left deep veins: Unremarkable. The common femoral, femoral, proximal profunda femoral and popliteal veins are patent without thrombus. Normal Doppler waveforms. Normal compressibility and/or augmentation response. Left superficial veins: Superficial thrombophlebitis Soft tissues: Unremarkable. IMPRESSION: No evidence of deep vein thrombosis. Dictated and Authenticated by: Wisam Woodard MD. Ordering:TRISTAN Schilling MD
--- NOTE | 2022-06-04 09:36 | W.EDPROG ---
Date of service: 06/04/22 Time of Service: 09:36 Medical Decision Making Received signout from Dr. Cavazos. Patient has a superficial thrombophlebitis of the left superficial veins. Discussed options of treatment for with her Sign Out Sign Out Data: Sign Out Comment: Recent trip from [place], history of DVTs and superficial phlebitis. Suspect potential DVT or superficial phlebitis currently. Pending ultrasound. Last updated by Shakir Cavazos DO at 06/04/22 09:01 Discharge Plan Disposition Patient Disposition: HOME Condition: Stable Discharge Details Clinical Impression: Superficial thrombophlebitis Primary Care Provider: Toyin Mcnair ED Provider: Vazquez Medel Home Meds and New Rx's Prescriptions: Continued potassium chloride 40 mEq/15 mL liquid 40 meq PO DAILY vitamin B complex [Vitamins B Complex] tablet 1 tab PO DAILY iodine liquid MC vit A and D3 in cod liver oil [cod liver oil] 1 EACH capsule 1 ea PO DAILY magnesium 200 MG tablet 200 mg PO DAILY Black Current Oil 1 cap PO BID ibuprofen [Advil Liqui-Gel] 200 MG capsule 4 tab PO PRN PRN calcium carbonate 500 mg calcium (1,250 mg) Tablet 500 mg PO DAILY No Action amoxicillin-pot clavulanate [Augmentin] 875-125 mg tablet 1 tab PO BID Qty: 14 0RF Discharge Instructions Instructions: Superficial Thrombophlebitis (ED) Additional Instructions: Follow-up with your regular doctor if not improved in 3 to 5 days time. See enclosed instructions. Return or see nearest healthcare facility for any acute concern
[2022-06-04 21:48] VITALS: RESP 16
== END 2022-06-04 09:55 | disposition home or self-care (01) ==
PROVIDERS: Emergency Provider Emergency Medicine; PCP Nurse Practitioner Family
DX: I80.02 Phlebitis and thrombophlebitis of superficial vessels of left lower extremity (principal)
CPT/HCPCS: 99284; 93971; 99283